=== PATIENT | female | born 1995 | race Caucasian/White ===

== ENCOUNTER 2017-10-29 04:50 | Inpatient (IN) | payer BC ==
[2017-10-29] MEDS ORDERED: Butorphanol 1 MG/ML SDV IVPUSH PRN (06:34)
[2017-10-29] MEDS ORDERED: Sodium Chloride 0.9% 10 ML Syringe FLUSH PRN (06:34)
[2017-10-29] MEDS ORDERED: Nalbuphine 10 MG/1 ML Vial IVPUSH PRN (06:34)
[2017-10-29] MEDS ORDERED: Tranexamic Acid 1,000 MG in Sodium Chloride 0.9% 100 ML IV PRN (06:34)
[2017-10-29] MEDS ORDERED: Water For Irrigation,Sterile 1,000 ML Container IRR PRN (06:34)
[2017-10-29] MEDS ORDERED: Methylergonovine 0.2 MG/1 ML Amp IM PRN (06:34)
[2017-10-29] MEDS ORDERED: Sodium Chloride 0.9% 2.5 ML Syringe FLUSH PRN (06:34)
[2017-10-29] MEDS ORDERED: Misoprostol 200 MCG Tab PO PRN (06:34)
[2017-10-29] MEDS ORDERED: Carboprost Tromethamine 250 MCG/1 ML Amp IM PRN (06:34)
[2017-10-29] MEDS ORDERED: Lidocaine 1% 50 ML MDV INJECT PRN (06:34)
[2017-10-29] MEDS ORDERED: Oxytocin/0.9 % Sodium Chloride 30 UNIT/500 ML BAG IV SCH ×2 (06:45→08:15)
[2017-10-29] MEDS ORDERED: Lactated Ringers 1,000 ML IV SCH (06:45)
[2017-10-29] MEDS ORDERED: Terbutaline 1 MG/ML SDV SUBCUT PRN (08:06)
[2017-10-29] MEDS ORDERED: Ropivacaine 0.2% 2 MG/ML 20 ML SDV ONE (11:28)
--- NOTE | 2017-10-29 11:51 | PCM.PREANE ---
Preanesthetic Assessment - Procedure Proposed Procedure: labor epidural - Anesthesia/Transfusion/Family Hx Anesthesia History: No Prior Anesthesia Transfusion History: No Prior Transfusion(s) - Review of Systems Other: Reports: None - Physical Assessment Height: 5 ft Weight: 99.79 kg ASA Class: 2 Mental Status: Alert & Oriented x3 Airway Class: Mallampati = 2 Dentition: Reports: Normal Dentition Thyro-Mental Finger Breadths: 3 Mouth Opening Finger Breadths: 3 ROM/Head Extension: Full - Lab Values: Laboratory Last Values WBC 10.42 K/uL (4.0-11.0) 10/29/17 07:38 RBC 4.65 M/uL (4.30-5.90) 10/29/17 07:38 Hgb 11.8 g/dL (12.0-16.0) L 10/29/17 07:38 Hct 36.3 % (36.0-46.0) 10/29/17 07:38 MCV 78.1 fL (80.0-98.0) L 10/29/17 07:38 MCH 25.4 pg (27.0-32.0) L 10/29/17 07:38 MCHC 32.5 g/dL (31.0-37.0) 10/29/17 07:38 RDW Std Deviation 46.4 fl (28.0-62.0) 10/29/17 07:38 RDW Coeff of Yaya 16 % (11.0-15.0) H 10/29/17 07:38 Plt Count 170 K/uL (150-400) 10/29/17 07:38 Nucleated RBC % 0.0 /100WBC 10/29/17 07:38 Nucleated RBCs # 0 K/uL 10/29/17 07:38 Membrane Rupture POSITIVE 10/29/17 05:00 Blood Type A POSITIVE 10/29/17 07:38 Antibody Screen POSITIVE 10/29/17 07:38 Antibody Identification Anti-E 10/29/17 07:38 - Allergies Allergies/Adverse Reactions: Allergies Allergy/AdvReac Type Severity Reaction Status Date / Time No Known Allergies Allergy Verified 03/01/15 16:38 - Blood Blood Available: Yes Product(s) Available: PRBC - Acknowledgements Anesthesia Type Planned: Epidural Pt an Appropriate Candidate for the Planned Anesthesia: Yes Alternatives and Risks of Anesthesia Discussed w Pt/Guardian: Yes Pt/Guardian Understands and Agrees with Anesthesia Plan: Yes PreAnesthesia Questionnaire - Past Health History Medical/Surgical History: Denies Medical/Surgical History HR INTERN History: Reports: , Spontaneous - SUBSTANCE USE Smoking Status *Q: Never Smoker Second Hand Smoke Exposure: No Days Per Week of Alcohol Use: 0 Recreational Drug Use History: No - HOME MEDS Home Medications: Home Meds . [No Known Home Meds] 05/14/14 [History] - CURRENT (IN HOUSE) MEDS Current Meds: Current Medications Butorphanol Tartrate (Stadol) 1 mg IVPUSH Q1H PRN PRN Reason: Pain Last Admin: 10/29/17 10:01 Dose: 1 mg Carboprost Tromethamine (Hemabate Ds) 250 mcg IM ASDIRECTED PRN PRN Reason: Post Hemorrhage Lactated Ringer's (Ringers, Lactated) 1,000 mls @ 150 mls/hr IV ASDIRECTED JEN Last Admin: 10/29/17 08:23 Dose: 150 mls/hr Oxytocin/Sodium Chloride (Oxytocin 30 Unit/500 Ml-Ns) 30 unit in 500 mls @ 999 mls/hr IV ASDIRECTED JEN Tranexamic Acid 1,000 mg/ (Sodium Chloride) 110 mls @ 660 mls/hr IV ONETIME PRN PRN Reason: Bleeding Oxytocin/Sodium Chloride (Oxytocin 30 Unit/500 Ml-Ns) 30 unit in 500 mls @ 2 mls/hr IV TITRATE JEN; Protocol Last Titration: 10/29/17 10:30 Dose: 4 munits/min, 4 mls/hr Lidocaine HCl (Xylocaine 1%) 50 ml INJECT .ONCE PRN PRN Reason: Laceration repair Methylergonovine Maleate (Methergine) 0.2 mg IM ASDIRECTED PRN PRN Reason: Post Hemorrhage Misoprostol (Cytotec) 200 mcg PO .ONCE PRN PRN Reason: Post Hemorrhage Nalbuphine HCl (Nubain) 10 mg IVPUSH Q1H PRN PRN Reason: Pain (severe 7-10) Sodium Chloride (Saline Flush) 10 ml FLUSH ASDIRECTED PRN PRN Reason: Keep Vein Open Sodium Chloride (Saline Flush) 2.5 ml FLUSH ASDIRECTED PRN PRN Reason: Keep Vein Open Sterile Water (Sterile Water For Irrigation) 1,000 ml IRR ASDIRECTED PRN PRN Reason: delivery Terbutaline Sulfate (Brethine) 0.25 mg SUBCUT ASDIRECTED PRN PRN Reason: Tacysystole Discontinued Medications Fentanyl/Bupivacaine HCl (Ypgjliwh-Hssql-Sy 2 Mcg/Ml-0.125%) Confirm Administered Dose 100 mls @ as directed EP .STK-MED ONE Stop: 10/29/17 11:29 Ropivacaine (Naropin 0.2%) Confirm Administered Dose 20 ml .ROUTE .STK-MED ONE Stop: 10/29/17 11:29
--- NOTE | 2017-10-29 14:10 | OR ---
SURGEON: MARBIN ANDRADE DATE OF PROCEDURE: 10/29/2017 PREOPERATIVE DIAGNOSES: A 22-year-old G2, P1, at 41 weeks and 1 day, admitted for prelabor rupture of membranes. GBS negative. POSTOPERATIVE DIAGNOSES: A 22-year-old G2, P1, at 41 weeks and 1 day, admitted for prelabor rupture of membranes. GBS negative. PROCEDURE: Normal spontaneous vaginal delivery. Anaesthsia; Epidural EBL: 350ml FINDINGS: Live female , delivered at 1305 hours. score was 9 and 9. Weight is 3240 g. Intact perineum and intact placenta. BRIEF HISTORY: She was a patient, who was admitted, who was complaining of rupture of membranes since 4:00 a.m. when she came in, she was 2, 70, -2 dilated. The patient was then started on Pitocin. Pitocin was started. The patient was examined. She was 6 cm dilated. She then may change to fully dilation. The patient was fully dilated. She was noted to have some early decelerations with moderate variability. The patient was encouraged to push with good pushing effort. PROCEDURE IN DETAIL: The patient was encouraged to push with good pushing effort, She delivered head subsequently by the anterior and posterior shoulder, then the body of the infant was delivered. The infant was placed on the maternal abdomen. Delayed cord clamping was observed. The cord blood gases were obtained. IV Pitocin was started, after which the placenta was delivered via controlled cord traction. After delivery of the placenta, the perineum was inspected, it was noted to be intact. The mother was left with the and family bonding. All instrument and pad counts were correct x2. LIBRA / YARA /[id number]
--- NOTE | 2017-10-29 15:24 | PCM48HPAN ---
Post Anesthesia Note - EVALUATION WITHIN 48HRS OF ANESTHETIC Vital Signs in Normal Range: Yes Patient Participated in Evaluation: Yes Respiratory Function Stable: Yes Airway Patent: Yes Cardiovascular Function Stable: Yes Hydration Status Stable: Yes Pain Control Satisfactory: Yes Nausea and Vomiting Control Satisfactory: Yes Mental Status Recovered: Yes
[2017-10-29] MEDS ORDERED: Ibuprofen 800 MG Tab ONE (20:58)
[2017-10-29] MEDS ORDERED: Acetaminophen 500 MG Tab PO PRN ×2 (21:45)
[2017-10-29] MEDS ORDERED: Ibuprofen 400 MG Tab PO PRN (21:45)
[2017-10-29] MEDS ORDERED: Benzocaine/Menthol 20%-0.5% Spray 78 GM Cannister TOP PRN (21:45)
[2017-10-29] MEDS ORDERED: Lanolin 100% Cream 7 GM Tube TOP PRN (21:45)
[2017-10-29] MEDS ORDERED: Witch Hazel Medicated Pads 40/Jar TOP PRN (21:45)
[2017-10-29] MEDS ORDERED: Docusate Sodium 100 MG Cap PO PRN (21:45)
[2017-10-29] MEDS ORDERED: Ibuprofen 800 MG Tab PO PRN (21:45)
[2017-10-29] MEDS ORDERED: Bisacodyl 10 MG Supp RECTAL PRN (21:45)
[2017-10-30 08:21] VITALS: BP 106/84
--- NOTE | 2017-10-30 08:48 | PCM.PNPP ---
- General Info Date of Service: 10/30/17 Functional Status: Reports: Pain Controlled, Tolerating Diet, Ambulating, Urinating - Review of Systems General: Denies: Fever, Fatigue, Chills HEENT: Denies: Headaches Pulmonary: Denies: Shortness of Breath, Pleuritic Chest Pain Cardiovascular: Denies: Chest Pain, Palpitations Gastrointestinal: Denies: Constipation Genitourinary: Denies: Dysuria, Frequency, Burning Neurological: Denies: No Symptoms Psychiatric: Denies: No Symptoms - General Info Date of Service: 10/30/17 - Patient Data Vital Signs - Most Recent: Last Vital Signs Temp 36.7 C 10/30/17 08:20 Pulse 86 10/30/17 08:20 Resp 20 10/30/17 08:20 BP 106/84 10/30/17 08:20 Pulse Ox 97 10/30/17 08:20 Weight - Most Recent: 220 lb Lab Results - Last 24 Hours: Laboratory Results - last 24 hr 10/29/17 10/29/17 10/30/17 Range/Units 07:38 07:38 04:55 Hgb 10.4 L (12.0-16.0) g/dL Hct 32.1 L (36.0-46.0) % Blood Type A POSITIVE Antibody Screen POSITIVE Antibody Identification Anti-E Antigen Typing E Antigen - NEGATIVE Crossmatch See Detail Med Orders - Current: Current Medications Acetaminophen (Tylenol Extra Strength) 500 mg PO Q4H PRN PRN Reason: Pain Acetaminophen (Tylenol Extra Strength) 1,000 mg PO Q4H PRN PRN Reason: Pain Benzocaine/Menthol (Dermoplast Pain Relief 20%-0.5% [place]) 78 gm TOP ASDIRECTED PRN PRN Reason: Perineal Comfort Measure Bisacodyl (Dulcolax) 10 mg RECTAL .ONCE PRN PRN Reason: Constipation Carboprost Tromethamine (Hemabate Ds) 250 mcg IM ASDIRECTED PRN PRN Reason: Post Hemorrhage Docusate Sodium (Colace) 100 mg PO BID PRN PRN Reason: Constipation Last Admin: 10/29/17 21:59 Dose: 100 mg Emollient Ointment (Lansinoh Hpa) 0 gm TOP ASDIRECTED PRN PRN Reason: Sore Nipples Lactated Ringer's (Ringers, Lactated) 1,000 mls @ 150 mls/hr IV ASDIRECTED JEN Last Admin: 10/29/17 08:23 Dose: 150 mls/hr Oxytocin/Sodium Chloride (Oxytocin 30 Unit/500 Ml-Ns) 30 unit in 500 mls @ 999 mls/hr IV ASDIRECTED JEN Tranexamic Acid 1,000 mg/ (Sodium Chloride) 110 mls @ 660 mls/hr IV ONETIME PRN PRN Reason: Bleeding Oxytocin/Sodium Chloride (Oxytocin 30 Unit/500 Ml-Ns) 30 unit in 500 mls @ 2 mls/hr IV TITRATE [facility]; Protocol Last Titration: 10/29/17 13:35 Dose: 250 munits/min, 250 mls/hr Ibuprofen (Motrin) 400 mg PO Q4H PRN PRN Reason: Pain Ibuprofen (Motrin) 800 mg PO Q6H PRN PRN Reason: Pain Last Admin: 10/30/17 08:14 Dose: 800 mg Lidocaine HCl (Xylocaine 1%) 50 ml INJECT .ONCE PRN PRN Reason: Laceration repair Methylergonovine Maleate (Methergine) 0.2 mg IM ASDIRECTED PRN PRN Reason: Post Hemorrhage Misoprostol (Cytotec) 200 mcg PO .ONCE PRN PRN Reason: Post Hemorrhage Sodium Chloride (Saline Flush) 10 ml FLUSH ASDIRECTED PRN PRN Reason: Keep Vein Open Sodium Chloride (Saline Flush) 2.5 ml FLUSH ASDIRECTED PRN PRN Reason: Keep Vein Open Sterile Water (Sterile Water For Irrigation) 1,000 ml IRR ASDIRECTED PRN PRN Reason: delivery Terbutaline Sulfate (Brethine) 0.25 mg SUBCUT ASDIRECTED PRN PRN Reason: Tacysystole Witch Gricelda (Tucks) 1 pad TOP ASDIRECTED PRN PRN Reason: comfort care Discontinued Medications Butorphanol Tartrate (Stadol) 1 mg IVPUSH Q1H PRN PRN Reason: Pain Last Admin: 10/29/17 10:01 Dose: 1 mg Fentanyl/Bupivacaine HCl (Nnbymwdp-Enrym-Ww 2 Mcg/Ml-0.125%) Confirm Administered Dose 100 mls @ as directed EP .STK-MED ONE Stop: 10/29/17 11:29 Ibuprofen (Motrin) Confirm Administered Dose 800 mg .ROUTE .STK-MED ONE Stop: 10/29/17 20:59 Last Admin: 10/29/17 22:00 Dose: 800 mg Nalbuphine HCl (Nubain) 10 mg IVPUSH Q1H PRN PRN Reason: Pain (severe 7-10) Ropivacaine (Naropin 0.2%) Confirm Administered Dose 20 ml .ROUTE .STK-MED ONE Stop: 10/29/17 11:29 - Infant Interaction Infant Disposition, : in Room with Family Interaction: Holding Feeding: Attempted ; Nursed Fair/Poor (Supplementing) Support Person: Significant Other - Recovery Exam Fundal Tone: Firm Fundal Level: 1 Fingerbreadths Above Umbilicus Fundal Placement: Midline Lochia Amount: Scant Lochia Color: Rubra/Red Perineum Description: Intact, Minimal Bruising/Swelling Episiotomy/Laceration: None Bladder Status: Voiding - Exam Lungs: Clear to Auscultation, Normal Respiratory Effort Cardiovascular: Regular Rate, Regular Rhythm GI/Abdominal Exam: Normal Bowel Sounds Extremities: Normal Inspection Skin: Warm Psy/Mental Status: Alert, Normal Affect, Normal Mood - Problem List & Annotations (1) Vaginal delivery SNOMED Code(s): 514021847 Code(s): O80 - ENCOUNTER FOR FULL-TERM UNCOMPLICATED DELIVERY Status: Acute Current Visit: No - Problem List Review Problem List Initiated/Reviewed/Updated: Yes - My Orders Last 24 Hours: My Active Orders 10/29/17 08:06 Oxygen Therapy [RC] ASDIRECTED Terbutaline [Brethine] 0.25 mg SUBCUT ASDIRECTED PRN 10/29/17 08:15 Oxytocin/0.9 % Sodium Chloride [Oxytocin 30 Unit/500 ML-NS] 30 unit in 500 ml IV TITRATE Medication Administration Instruction [OM.PC] Q3H 10/30/17 08:39 Ready for Discharge [RC] PER UNIT ROUTINE - Assessment Assessment:: PPD 31 s/p , stable and afebrile. Clinically stable for discharge today - Plan Plan:: Discharge instructions reviewed Nothing inthe vagina for 6 weeks Continue PNV OTC pain meds for pain PRN blues vs depression symptoms reviewed Follow up in 6 weeks
== END 2017-10-30 15:10 | disposition home or self-care (01) | DRG 560 ==
LOC: MW.OBCHECK 04:50 → MW.OB 04:53 → MW.OBCHECK 06:34 → MW.OB 06:34 → OBSVTOIN 13:05 → MW.OB 19:43
PROVIDERS: ADMIT Obstetrics & Gynecology; ATTEND Obstetrics & Gynecology
PROC: 10E0XZZ Delivery of Products of Conception, External Approach (ICD-10-PCS; principal; 2017-10-29)
PROC: 3E033VJ Introduction of Other Hormone into Peripheral Vein, Percutaneous Approach (ICD-10-PCS; 2017-10-29)
PROC: 10907ZC Drainage of Amniotic Fluid, Therapeutic from Products of Conception, Via Natural or Artificial Opening (ICD-10-PCS; 2017-10-29)
DX: O42.02 Full-term premature rupture of membranes, onset of labor within 24 hours of rupture (principal); Z3A.40 40 weeks gestation of pregnancy; Z37.0 Single live birth
CPT/HCPCS: 36415; 59025; 59409; 84112; 85014; 85018; 85027; 86850; 86870; 86900; 86901; 86902; A9270-GY; J0595; J2590; J2795; J7120

== ENCOUNTER 2018-12-12 19:50 | Emergency (ER) | payer BC, MEDICAID ==
[2018-12-12 20:13] VITALS: BP 114/72
--- NOTE | 2018-12-12 20:34 | EDM.PDOC ---
ED HPI GENERAL MEDICAL PROBLEM <George Akins - Last Filed: 12/12/18 23:15> - General Source of Information: Reports: Patient History Limitations: Reports: No Limitations lower back Pain Score (Numeric/FACES): 2 <Eva Whatley - Last Filed: 12/13/18 10:15> - General Chief Complaint: COMMUNITY RECREATION COORDINATOR Problem Stated Complaint: VAGINAL BLEEDING Time Seen by Provider: 12/12/18 19:53 - History of Present Illness INITIAL COMMENTS - FREE TEXT/NARRATIVE: HISTORY AND PHYSICAL: History of present illness: 23-year-old G4A1P2 here today for vaginal bleeding and lower back pain x 4 days. Patient states that she is approximately 9 weeks . Patient has high a confirmation of has not had an ultrasound yet for this . She began spotting mostly dark red blood 4 days ago filling approximately a half a pad four times a day. Today she began passing clots and she called her OB (Dr. Knox) who told her to come in to the ER. Patient states she does have some antibodies in her blood but has never had to receive Rhogram because of them. Patient denies any other symptoms or concerns at this time. Patient denies fever, chills, chest pain, shortness of breath, or cough. Denies headache, neck stiff ness, change in vision, syncope, or near syncope. Denies nausea, vomiting, abdominal pain, diarrhea, constipation, or dysuria. Has not noted any blood in urine or stool. Patient has been eating and drinking appropriately. Review of systems: As per history of present illness and below otherwise all systems reviewed and negative. Past medical history: As per history of present illness and as reviewed below otherwise noncontributory. Surgical history: As per history of present illness and as reviewed below otherwise noncontributory. Social history: See social history for further information Family history: As per history of present illness and as reviewed below otherwise noncontributory. Physical exam: General: Patient is alert, oriented, and in no acute distress. Patient sitting comfortably on exam table. HEENT: Atraumatic, normocephalic, pupils equal and reactive bilaterally, negative for conjunctival pallor or scleral icterus, mucous membranes moist, TMs normal bilaterally, throat clear, neck supple, nontender, trachea midline. No drooling or trismus noted. No meningeal signs. No hot potato voice noted. Lungs: Clear to auscultation, breath sounds equal bilaterally, chest nontender. Heart: S1S2, regular rate and rhythm without overt murmur Abdomen: Soft, nondistended, nontender. Negative for masses or hepatosplenomegaly. Negative for costovertebral tenderness. Pelvis: Stable nontender. Genitourinary: Deferred. Rectal: Deferred. Skin: Intact, warm, dry. No lesions or rashes noted. Extremities: Atraumatic, negative for cords or calf pain. Neurovascular unremarkable. Neuro: Awake, alert, oriented. Cranial nerves II through XII unremarkable. Cerebellum unremarkable. Motor and sensory unremarkable throughout. Exam nonfocal. Notes: A positive blood type. Dr. Akins has assumed care of patient and will follow remaining diagnostics and disposition. Discussed the importance of follow up with OBGYN. s understanding and is agreeable to plan of care. Denies any further questions or concerns at this time. Diagnostics: CBC,CMP, UA, Uhcg, HcgQuant, TVUS, Rh/blood type Therapeutics: None Prescription: None Impression: Threatened Plan: Follow-up COMMUNITY RECREATION COORDINATOR as discussed vaginal rest as discussed return as needed as discussed Definitive disposition and diagnosis as appropriate pending reevaluation and review of above. (Eva Whatley) - Related Data Allergies Allergy/AdvReac Type Severity Reaction Status Date / Time No Known Allergies Allergy Verified 12/12/18 20:08 Home Meds: Home Meds Comb No.42/Folic Acid [Prena1 Chew Tablet] 1.4 mg PO DAILY 12/12/18 [ History] Past Medical History - Past Health History Medical/Surgical History: Denies Medical/Surgical History COMMUNITY RECREATION COORDINATOR History: Reports: , Spontaneous <Eva Whatley - Last Filed: 12/13/18 10:15> Social & Family History - Family History Family Medical History: Noncontributory Musculoskeletal: Reports: Arthritis Endocrine/Metabolic: Reports: Diabetes, Type I Oncologic: Reports: Lung - Tobacco Use Smoking Status *Q: Never Smoker Second Hand Smoke Exposure: No - Caffeine Use Caffeine Use: Reports: Coffee, Soda <Eva Whatley - Last Filed: 12/13/18 10:15> ED ROS GENERAL - Review of Systems Review Of Systems: ROS reveals no pertinent complaints other than HPI. <George Akins - Last Filed: 12/12/18 23:15> ED EXAM - Physical Exam Exam: See Below (See dictation) <George Akins - Last Filed: 12/12/18 23:15> Course <George Akins - Last Filed: 12/12/18 23:15> <Eva Whatley - Last Filed: 12/13/18 10:15> - Vital Signs Text/Narrative:: Patient's emergency department course has been unremarkable her transvaginal ultrasound was suspicious for blighted ovum versus early IUP I discussed implications with patient and understand and agree and need for close follow-up with COMMUNITY RECREATION COORDINATOR in which they will secure on Saturday (George Akins) Last Recorded V/S: Last Vital Signs Temp 36.4 C 12/12/18 20:09 Pulse 93 12/12/18 20:09 Resp 16 12/12/18 20:09 BP 114/72 12/12/18 20:09 Pulse Ox 98 12/12/18 20:09 - Orders/Labs/Meds Orders: Active Orders 24 hr Category Date Time Status CULTURE URINE [RM] Stat Lab 12/12/18 20:25 Received Labs: Laboratory Tests 12/12/18 12/12/18 12/12/18 Range/Units 20:25 20:25 20:30 WBC 10.88 (4.0-11.0) K/uL RBC 4.94 (4.30-5.90) M/uL Hgb 12.6 (12.0-16.0) g/dL Hct 39.6 (36.0-46.0) % MCV 80.2 (80.0-98.0) fL MCH 25.5 L (27.0-32.0) pg MCHC 31.8 (31.0-37.0) g/dL RDW Std Deviation 44.8 (28.0-62.0) fl RDW Coeff of Yaya 15 (11.0-15.0) % Plt Count 317 (150-400) K/uL MPV 12.30 H (7.40-12.00) fL Neut % (Auto) 68.4 (48.0-80.0) % Lymph % (Auto) 23.7 (16.0-40.0) % [place] % (Auto) 6.8 (0.0-15.0) % Eos % (Auto) 1.0 (0.0-7.0) % Baso % (Auto) 0.1 (0.0-1.5) % Neut # (Auto) 7.4 H (1.4-5.7) K/uL Lymph # (Auto) 2.6 H (0.6-2.4) K/uL [place] # (Auto) 0.7 (0.0-0.8) K/uL Eos # (Auto) 0.1 (0.0-0.7) K/uL Baso # (Auto) 0.0 (0.0-0.1) K/uL Nucleated RBC % 0.0 /100WBC Nucleated RBCs # 0 K/uL HCG, Quant mIU/mL Urine Color RED Urine Appearance CLOUDY Urine pH 6.5 (5.0-8.0) Ur Specific [place] 1.025 (1.001-1.035) Urine Protein 100 H (NEGATIVE) mg/dL Urine Glucose (UA) NEGATIVE (NEGATIVE) mg/dL Urine Ketones NEGATIVE (NEGATIVE) mg/dL Urine Occult Blood LARGE H (NEGATIVE) Urine Nitrite NEGATIVE (NEGATIVE) Urine Bilirubin NEGATIVE (NEGATIVE) Urine Urobilinogen 0.2 (<2.0) EU/dL Ur Leukocyte Esterase TRACE H (NEGATIVE) Urine RBC TOO NUMEROUS TO CT H (0-2/HPF) Urine WBC 1-2 (0-5/HPF) Ur Epithelial Cells OCCASIONAL (NONE-FEW) Urine Bacteria RARE (NEGATIVE) Urinalysis Comment Urine HCG, Qual POSITIVE (NEGATIVE) Blood Type 12/12/18 12/12/18 Range/Units 20:30 20:30 WBC (4.0-11.0) K/uL RBC (4.30-5.90) M/uL Hgb (12.0-16.0) g/dL Hct (36.0-46.0) % MCV (80.0-98.0) fL MCH (27.0-32.0) pg MCHC (31.0-37.0) g/dL RDW Std Deviation (28.0-62.0) fl RDW Coeff of Yaya (11.0-15.0) % Plt Count (150-400) K/uL MPV (7.40-12.00) fL Neut % (Auto) (48.0-80.0) % Lymph % (Auto) (16.0-40.0) % [place] % (Auto) (0.0-15.0) % Eos % (Auto) (0.0-7.0) % Baso % (Auto) (0.0-1.5) % Neut # (Auto) (1.4-5.7) K/uL Lymph # (Auto) (0.6-2.4) K/uL [place] # (Auto) (0.0-0.8) K/uL Eos # (Auto) (0.0-0.7) K/uL Baso # (Auto) (0.0-0.1) K/uL Nucleated RBC % /100WBC Nucleated RBCs # K/uL HCG, Quant 9355.0 mIU/mL Urine Color Urine Appearance Urine pH (5.0-8.0) Ur Specific [place] (1.001-1.035) Urine Protein (NEGATIVE) mg/dL Urine Glucose (UA) (NEGATIVE) mg/dL Urine Ketones (NEGATIVE) mg/dL Urine Occult Blood (NEGATIVE) Urine Nitrite (NEGATIVE) Urine Bilirubin (NEGATIVE) Urine Urobilinogen (<2.0) EU/dL Ur Leukocyte Esterase (NEGATIVE) Urine RBC (0-2/HPF) Urine WBC (0-5/HPF) Ur Epithelial Cells (NONE-FEW) Urine Bacteria (NEGATIVE) Urinalysis Comment Urine HCG, Qual (NEGATIVE) Blood Type A POSITIVE Departure - Departure Time of Disposition: 23:16 <George Akins - Last Filed: 12/12/18 23:15> <Eva Whatley - Last Filed: 12/13/18 10:15> - Departure Disposition: Home, Self-Care 01 Clinical Impression: First trimester bleeding, Threatened - Discharge Information Instructions: Threatened Miscarriage, [id number] Referrals: Doretha Knox MD [Primary Care Provider] - Forms: ED Department Discharge Additional Instructions: The following information is given to patients seen in the emergency department who are being discharged to home. This information is to outline your options for follow-up care. We provide all patients seen in our emergency department with a follow-up referral. The need for follow-up, as well as the timing and circumstances, are variable depending upon the specifics of your emergency department visit. If you don't have a primary care physician on staff, we will provide you with a referral. We always advise you to contact your personal physician following an emergency department visit to inform them of the circumstance of the visit and for follow-up with them and/or the need for any referrals to a consulting specialist. The emergency department will also refer you to a specialist when appropriate. This referral assures that you have the opportunity for followup care with a specialist. All of these measure are taken in an effort to provide you with optimal care, which includes your followup. Under all circumstances we always encourage you to contact your private physician who remains a resource for coordinating your care. When calling for followup care, please make the office aware that this follow-up is from your recent emergency room visit. If for any reason you are refused follow-up, please contact the [facility] emergency department at and asked to speak to the emergency department charge nurse. Follow-up COMMUNITY RECREATION COORDINATOR as discussed vaginal rest as discussed return as needed as discussed - My Orders Last 24 Hours: My Active Orders 12/12/18 20:25 CULTURE URINE [RM] Stat - Assessment/Plan Last 24 Hours: My Active Orders 12/12/18 20:25 CULTURE URINE [RM] Stat
--- NOTE | 2018-12-12 23:00 | US ---
INDICATION : Vaginal bleeding. FINDINGS: Transabdominal and transvaginal imaging. Uterus 9 x 5 x 5 cm. Anechoic fluid in the endometrial cavity. No pole. Equivocal indistinct small yolk sac. Small implantation hemorrhage at the fundal margin. Mean sac diameter is 13 mm which suggest 6 weeks 1 day gestation. IMPRESSION: Early intrauterine versus blighted ovum. Clinical and laboratory followup with repeat imaging recommended. Dictated by Ger Garcia MD @ Dec 12 2018 10:57PM Signed by Dr. Ger Garcia @ Dec 12 2018 10:59PM
== END 2018-12-12 23:25 | disposition home or self-care (01) ==
LOC: MW.ED 19:50
DX: O20.0 Threatened abortion (principal); Z3A.09 9 weeks gestation of pregnancy
CPT/HCPCS: 76817; 76817-26; 81001; 81025; 84702; 85025; 86900; 86901; 87086; 99284; 99284-25

== ENCOUNTER 2019-01-06 09:24 | Emergency (ER) | payer BC, MEDICAID ==
[2019-01-06] MEDS ORDERED: Sodium Chloride 0.9% 10 ML Syringe FLUSH PRN (09:42)
[2019-01-06] MEDS ORDERED: Ketorolac 30 MG/ML SDV IVPUSH ONE (09:42)
[2019-01-06] MEDS ORDERED: Sodium Chloride 0.9% 2.5 ML Syringe FLUSH PRN (09:42)
[2019-01-06] MEDS ORDERED: Sodium Chloride 0.9% 1,000 ML IV ONE (09:42)
[2019-01-06] MEDS ORDERED: Ondansetron 4 MG/2 ML SDV IVPUSH ONE (09:42)
--- NOTE | 2019-01-06 10:04 | EDM.PDOC ---
ED HPI GENERAL MEDICAL PROBLEM - General Chief Complaint: Flank Pain Stated Complaint: PAIN IN LOWER BACK. HX OF KIDNEY PROBLEMS Time Seen by Provider: 01/06/19 09:32 - History of Present Illness INITIAL COMMENTS - FREE TEXT/NARRATIVE: HISTORY AND PHYSICAL: History of present illness: Patient's 23-year-old white female with history of urolithiasis who presents with concern of acute left flank pain off and on over the last several days with associated nausea no vomiting no fever chills no vaginal discharge no dysuria frequency or hesitancy Review of systems: As per history of present illness and below otherwise all systems reviewed and negative. Past medical history: As per history of present illness and as reviewed below otherwise noncontributory. Surgical history: As per history of present illness and as reviewed below otherwise noncontributory. Social history: No reported history of drug or alcohol abuse. Family history: As per history of present illness and as reviewed below otherwise noncontributory. Physical exam: HEENT: Atraumatic, normocephalic, pupils reactive, negative for conjunctival pallor or scleral icterus, mucous membranes moist, throat clear, neck supple, nontender, trachea midline. Lungs: Clear to auscultation, breath sounds equal bilaterally, chest nontender. Heart: S1S2, regular, negative for clicks, rubs, or JVD. Abdomen: Soft, nondistended, nontender. Negative for masses or hepatosplenomegaly. left sided costovertebral tenderness. Pelvis: Stable nontender. Genitourinary: Deferred. Rectal: Deferred. Extremities: Atraumatic, negative for cords or calf pain. Neurovascular unremarkable. Neuro: Awake, alert, oriented. Cranial nerves II through XII unremarkable. Cerebellum unremarkable. Motor and sensory unremarkable throughout. Exam nonfocal. Diagnostics: CBC CMP UA CT abdomen and pelvis hCG Therapeutics: Saline 1 L bolus Toradol 30 mg IV Zofran 4 mg IV Impression: #1 left flank pain Definitive disposition and diagnosis as appropriate pending reevaluation and review of above. left flank Pain Score (Numeric/FACES): 7 - Related Data Allergies Allergy/AdvReac Type Severity Reaction Status Date / Time No Known Allergies Allergy Verified 01/06/19 09:35 Home Meds: Home Meds . [No Known Home Meds] 01/06/19 [History] Past Medical History - Past Health History Medical/Surgical History: Denies Medical/Surgical History Genitourinary History: Reports: Renal Calculus, Other (See Below) Other Genitourinary History: Kidney Infection WORK [employer] History: Reports: , Spontaneous Social & Family History - Family History Family Medical History: Noncontributory Musculoskeletal: Reports: Arthritis Endocrine/Metabolic: Reports: Diabetes, Type I Oncologic: Reports: Lung - Tobacco Use Smoking Status *Q: Never Smoker - Caffeine Use Caffeine Use: Reports: Coffee, Soda - Recreational Drug Use Recreational Drug Use: No ED ROS GENERAL - Review of Systems Review Of Systems: ROS reveals no pertinent complaints other than HPI. ED EXAM, GENERAL - Physical Exam Exam: See Below (See dictation) Course - Vital Signs Text/Narrative:: Case discussed with urology regarding urinalysis and CT findings agrees with Rocephin 1 g IV in ER disposition with follow-up as discussed with urology prescription for Cipro Zofran hydrocodone and Flomax patient is return as needed as discussed for any fever chills nausea vomiting persistent or worsening pain Last Recorded V/S: Last Vital Signs Temp 36.3 C 01/06/19 09:32 Pulse 90 01/06/19 09:32 Resp 18 01/06/19 09:32 BP 133/112 H 01/06/19 09:32 Pulse Ox 97 01/06/19 09:32 - Orders/Labs/Meds Orders: Active Orders 24 hr Category Date Time Status Sodium Chloride 0.9% [Saline Flush] Med 01/06/19 09:42 Active 10 ml FLUSH ASDIRECTED PRN Sodium Chloride 0.9% [Saline Flush] Med 01/06/19 09:42 Active 2.5 ml FLUSH ASDIRECTED PRN cefTRIAXone [Rocephin in Dextrose,Iso-Osm 1 GM/50 ML] 1 Med 01/06/19 11:25 Active gm Premix Bag 1 bag IV ONETIME Saline Lock Insert [OM.PC] Stat Oth 01/06/19 09:41 Ordered Medication Orders Ceftriaxone Sodium/Dextrose 1 (gm/ Premix) 50 mls @ 100 mls/hr IV ONETIME ONE Stop: 01/06/19 11:54 Sodium Chloride (Saline Flush) 10 ml FLUSH ASDIRECTED PRN PRN Reason: Keep Vein Open Sodium Chloride (Saline Flush) 2.5 ml FLUSH ASDIRECTED PRN PRN Reason: Keep Vein Open Labs: Laboratory Tests 01/06/19 01/06/19 01/06/19 Range/Units 09:52 09:52 09:52 WBC 8.39 (4.0-11.0) K/uL RBC 4.97 (4.30-5.90) M/uL Hgb 12.6 (12.0-16.0) g/dL Hct 40.1 (36.0-46.0) % MCV 80.7 (80.0-98.0) fL MCH 25.4 L (27.0-32.0) pg MCHC 31.4 (31.0-37.0) g/dL RDW Std Deviation 44.3 (28.0-62.0) fl RDW Coeff of Yaya 15 (11.0-15.0) % Plt Count 316 (150-400) K/uL MPV 12.00 (7.40-12.00) fL Neut % (Auto) 72.2 (48.0-80.0) % Lymph % (Auto) 21.5 (16.0-40.0) % [place] % (Auto) 4.3 (0.0-15.0) % Eos % (Auto) 1.8 (0.0-7.0) % Baso % (Auto) 0.2 (0.0-1.5) % Neut # (Auto) 6.1 H (1.4-5.7) K/uL Lymph # (Auto) 1.8 (0.6-2.4) K/uL [place] # (Auto) 0.4 (0.0-0.8) K/uL Eos # (Auto) 0.2 (0.0-0.7) K/uL Baso # (Auto) 0.0 (0.0-0.1) K/uL Nucleated RBC % 0.0 /100WBC Nucleated RBCs # 0 K/uL Sodium 140 (136-145) mmol/L Potassium 4.2 (3.5-5.1) mmol/L Chloride 105 (98-107) mmol/L Carbon Dioxide 24.5 (21.0-32.0) mmol/L BUN 20 H (7.0-18.0) mg/dL Creatinine 0.8 (0.6-1.0) mg/dL Est Cr Clr Drug Dosing 79.23 mL/min Estimated GFR (MDRD) > 60.0 ml/min Glucose 122 H (74-106) mg/dL Calcium 9.1 (8.5-10.1) mg/dL Total Bilirubin 0.6 (0.2-1.0) mg/dL AST 20 (15-37) IU/L ALT 25 (14-63) IU/L Alkaline Phosphatase 104 (46-116) U/L Total Protein 8.4 H (6.4-8.2) g/dL Albumin 4.1 (3.4-5.0) g/dL Globulin 4.3 H (2.6-4.0) g/dL Albumin/Globulin Ratio 1.0 (0.9-1.6) HCG, Qual NEGATIVE (NEG) Urine Color Urine Appearance Urine pH (5.0-8.0) Ur Specific [place] (1.001-1.035) Urine Protein (NEGATIVE) mg/dL Urine Glucose (UA) (NEGATIVE) mg/dL Urine Ketones (NEGATIVE) mg/dL Urine Occult Blood (NEGATIVE) Urine Nitrite (NEGATIVE) Urine Bilirubin (NEGATIVE) Urine Urobilinogen (<2.0) EU/dL Ur Leukocyte Esterase (NEGATIVE) Urine RBC (0-2/HPF) Urine WBC (0-5/HPF) Ur Epithelial Cells (NONE-FEW) Amorphous Sediment (NEGATIVE) Urine Bacteria (NEGATIVE) Urine Mucus (NONE-MOD) Urine Yeast 01/06/19 Range/Units 10:30 WBC (4.0-11.0) K/uL RBC (4.30-5.90) M/uL Hgb (12.0-16.0) g/dL Hct (36.0-46.0) % MCV (80.0-98.0) fL MCH (27.0-32.0) pg MCHC (31.0-37.0) g/dL RDW Std Deviation (28.0-62.0) fl RDW Coeff of [place]aya (11.0-15.0) % Plt Count (150-400) K/uL MPV (7.40-12.00) fL Neut % (Auto) (48.0-80.0) % Lymph % (Auto) (16.0-40.0) % [place] % (Auto) (0.0-15.0) % Eos % (Auto) (0.0-7.0) % Baso % (Auto) (0.0-1.5) % Neut # (Auto) (1.4-5.7) K/uL Lymph # (Auto) (0.6-2.4) K/uL [place] # (Auto) (0.0-0.8) K/uL Eos # (Auto) (0.0-0.7) K/uL Baso # (Auto) (0.0-0.1) K/uL Nucleated RBC % /100WBC Nucleated RBCs # K/uL Sodium (136-145) mmol/L Potassium (3.5-5.1) mmol/L Chloride (98-107) mmol/L Carbon Dioxide (21.0-32.0) mmol/L BUN (7.0-18.0) mg/dL Creatinine (0.6-1.0) mg/dL Est Cr Clr Drug Dosing mL/min Estimated GFR (MDRD) ml/min Glucose (74-106) mg/dL Calcium (8.5-10.1) mg/dL Total Bilirubin (0.2-1.0) mg/dL AST (15-37) IU/L ALT (14-63) IU/L Alkaline Phosphatase (46-116) U/L Total Protein (6.4-8.2) g/dL Albumin (3.4-5.0) g/dL Globulin (2.6-4.0) g/dL Albumin/Globulin Ratio (0.9-1.6) HCG, Qual (NEG) Urine Color YELLOW Urine Appearance SLT CLOUDY Urine pH 5.5 (5.0-8.0) Ur Specific [place] >= 1.030 (1.001-1.035) Urine Protein TRACE H (NEGATIVE) mg/dL Urine Glucose (UA) NEGATIVE (NEGATIVE) mg/dL Urine Ketones NEGATIVE (NEGATIVE) mg/dL Urine Occult Blood LARGE H (NEGATIVE) Urine Nitrite NEGATIVE (NEGATIVE) Urine Bilirubin NEGATIVE (NEGATIVE) Urine Urobilinogen 0.2 (<2.0) EU/dL Ur Leukocyte Esterase NEGATIVE (NEGATIVE) Urine RBC 6-10 (0-2/HPF) Urine WBC 4-6 (0-5/HPF) Ur Epithelial Cells MODERATE (NONE-FEW) Amorphous Sediment LIGHT (NEGATIVE) Urine Bacteria 1+ H (NEGATIVE) Urine Mucus LIGHT (NONE-MOD) Urine Yeast RARE Meds: Medications Generic Name Dose Route Start Last Admin Trade Name Freq PRN Reason Stop Dose Admin Ceftriaxone Sodium/Dextrose 1 50 mls @ 100 mls/hr 01/06/19 11:25 gm/ Premix IV 01/06/19 11:54 ONETIME ONE Sodium Chloride 10 ml 01/06/19 09:42 Saline Flush FLUSH ASDIRECTED PRN Keep Vein Open Sodium Chloride 2.5 ml 01/06/19 09:42 Saline Flush FLUSH ASDIRECTED PRN Keep Vein Open Discontinued Medications Generic Name Dose Route Start Last Admin Trade Name Freq PRN Reason Stop Dose Admin Sodium Chloride 1,000 mls @ 999 mls/hr 01/06/19 09:42 01/06/19 09:52 Normal Saline IV 01/06/19 10:42 999 mls/hr STAT ONE Administration Ketorolac Tromethamine 30 mg 01/06/19 09:42 01/06/19 09:52 Toradol IVPUSH 01/06/19 09:43 30 mg ONETIME ONE Administration Ondansetron HCl 4 mg 01/06/19 09:42 01/06/19 09:52 Zofran IVPUSH 01/06/19 09:43 4 mg ONETIME ONE Administration Tamsulosin HCl 0.4 mg 01/06/19 11:25 Flomax PO 01/06/19 11:26 ONETIME ONE Departure - Departure Time of Disposition: 11:22 Disposition: Home, Self-Care 01 Condition: Good Clinical Impression: Urolithiasis - Discharge Information Referrals: PCP,None [Primary Care Provider] - Forms: ED Department Discharge Additional Instructions: The following information is given to patients seen in the emergency department who are being discharged to home. This information is to outline your options for follow-up care. We provide all patients seen in our emergency department with a follow-up referral. The need for follow-up, as well as the timing and circumstances, are variable depending upon the specifics of your emergency department visit. If you don't have a primary care physician on staff, we will provide you with a referral. We always advise you to contact your personal physician following an emergency department visit to inform them of the circumstance of the visit and for follow-up with them and/or the need for any referrals to a consulting specialist. The emergency department will also refer you to a specialist when appropriate. This referral assures that you have the opportunity for followup care with a specialist. All of these measure are taken in an effort to provide you with optimal care, which includes your followup. Under all circumstances we always encourage you to contact your private physician who remains a resource for coordinating your care. When calling for followup care, please make the office aware that this follow-up is from your recent emergency room visit. If for any reason you are refused follow-up, please contact the [facility] emergency department at and asked to speak to the emergency department charge nurse. [facility] Specialty Care - Urology [address] [place] [id number] Flomax Sigel Zofran Cipro as prescribed follow-up with urology above call for appointment in a.m. tomorrow - My Orders Last 24 Hours: My Active Orders 01/06/19 09:41 Saline Lock Insert [OM.PC] Stat 01/06/19 09:42 Sodium Chloride 0.9% [Saline Flush] 10 ml FLUSH ASDIRECTED PRN Sodium Chloride 0.9% [Saline Flush] 2.5 ml FLUSH ASDIRECTED PRN 01/06/19 11:25 cefTRIAXone [Rocephin in Dextrose,Iso-Osm 1 GM/50 ML] 1 gm Premix Bag 1 bag IV ONETIME - Assessment/Plan Last 24 Hours: My Active Orders 01/06/19 09:41 Saline Lock Insert [OM.PC] Stat 01/06/19 09:42 Sodium Chloride 0.9% [Saline Flush] 10 ml FLUSH ASDIRECTED PRN Sodium Chloride 0.9% [Saline Flush] 2.5 ml FLUSH ASDIRECTED PRN 01/06/19 11:25 cefTRIAXone [Rocephin in Dextrose,Iso-Osm 1 GM/50 ML] 1 gm Premix Bag 1 bag IV ONETIME
[2019-01-06 10:48] LABS: CHLORIDE,CL 105 mmol/L (98-107); SODIUM,NA 140 mmol/L (136-145)
--- NOTE | 2019-01-06 10:56 | CT ---
CT of the abdomen and pelvis without contrast. HISTORY: Pain TECHNIQUE: Axial CT images were obtained of the abdomen and pelvis without contrast. Coronal and sagittal reconstructions obtained. FINDINGS: The lung bases are clear, no pleural effusion. The liver, spleen, adrenal glands, and pancreas appear unremarkable for noncontrast examination. The gallbladder appears normal. There is no bulky retroperitoneal lymphadenopathy. No abdominal ascites. Small 3 to 4 mm nonobstructing stones within the kidneys bilaterally. There is a mildly obstructing 3 mm stone at the left ureterovesicular junction with mild proximal hydronephrosis. The large and small bowel are normal in caliber without evidence of obstruction. The appendix appears normal. There is no bulky pelvic lymphadenopathy. No free fluid. No free air. The urinary bladder appears normal. The visualized osseous structures appear normal. IMPRESSION: 1. There is a 3 mm mildly obstructing stone at the left ureterovesicular junction with mild proximal hydronephrosis. 2. Small nonobstructing nephrolithiasis bilaterally.
[2019-01-06] MEDS ORDERED: cefTRIAXone 1 GM in Premix Bag 1 BAG IV ONE (11:25)
[2019-01-06] MEDS ORDERED: Tamsulosin 0.4 MG Cap.ER PO ONE (11:25)
[2019-01-06 12:09] VITALS: BP 93/72
== END 2019-01-06 12:06 | disposition home or self-care (01) ==
LOC: MW.ED 09:24
DX: N13.2 Hydronephrosis with renal and ureteral calculous obstruction (principal)
CPT/HCPCS: 36415; 74176; 80053; 81001; 84703; 85025; 96361; 96365; 96375; 99284; A4217; A9270; J0696; J1885; J2405; J7040